=== PATIENT | female | born 1990 | race Caucasian/White ===

== ENCOUNTER 2019-06-11 10:15 | Emergency (ER) | payer SELFPAY ==
[~2019-06-11] VITALS: Ht 154.9 cm; Wt 61.4 kg
[~2019-06-11 10:15] MED LIST: CEFTIN250 M1 PO; FLEXERIL 1010 MG/TAB PO; NO HOME MEDICATIONS; NORCO 325 MG-51 TAB PO; PHENERGAN VC W120 ML PO; PRENATAL1 TA1 PO; ZANTAC PO
[2019-06-11 10:29] VITALS: BP 173/98; PULSE 95; TEMP 98.6
[2019-06-11] MEDS ORDERED: FLEXERIL 1010 MG/TAB PO (11:11)
== END 2019-06-11 11:16 | disposition home or self-care (01) ==
LOC: COL.ER 10:15
DX: M54.2 Cervicalgia (principal); F17.210 Nicotine dependence, cigarettes, uncomplicated; Z90.49 Acquired absence of other specified parts of digestive tract

== ENCOUNTER 2019-09-01 21:32 | Emergency (ER) | payer SELFPAY ==
[~2019-09-01] VITALS: Ht 152.4 cm; Wt 59.1 kg
[2019-09-01 22:34] LABS: BASO # 0.1 (0.0-0.2); BASO % 0.5 % (0.0-2.0); EOS # 0.1 (0.0-0.7); EOS % 0.5 % (0-4.0); GRAN # 9.9 (1.4-6.5); GRAN % 66.2 % (42.2-75.2); HEMATOCRIT 43.4 % (37.0-47.0); HEMOGLOBIN 14.6 g/dl (12.5-16.0); LYMPH # 3.7 (1.2-3.4); LYMPH % 24.7 % (20.0-51.0); MEAN CELL VOLUME 95 fl (80.0-100.0); MEAN CORPUSCULAR HEMOGLOBIN 32 pg (27.0-31.0); MEAN CORPUSCULAR HGB CONC 34 g/dl (33.0-37.0); MEAN PLATELET VOLUME 12.3 fl (7.4-10.4); MONO # 1.2 (0.1-0.6); MONO % 7.7 % (1.7-9.3); PLATELET COUNT 181 K/mm3 (130-400); RED BLOOD COUNT 4.57 M/mm3 (4.10-5.30)
[2019-09-01 22:46] LABS: ALANINE AMINOTRANSFERASE 24 U/L (4-34); ALBUMIN 4.7 gm/dL (3.5-5.0); ALCOHOL(ethanol),MEDICAL 118 mg/dL; ALKALINE PHOSPHATASE 59 U/L (50-136); ANION GAP 8 mmol/L (7-16); AST,SGOT 52 U/L (15-37); BILIRUBIN,TOTAL 0.5 mg/dL (0.0-1.0); BLOOD UREA NITROGEN 6 mg/dL (7-17); CALCIUM 9.1 mg/dL (8.4-10.2); CARBON DIOXIDE 23 mmol/L (22-30); CHLORIDE 109 mmol/L (98-107); CREATININE, serum 0.65 (0.52-1.25); GLUCOSE 104 mg/dL (74-106); POTASSIUM 4.1 mmol/L (3.4-5.0); SODIUM 140 mmol/L (137-145); TOTAL PROTEIN 7.8 gm/dL (6.4-8.2)
[2019-09-01 22:47] LABS: ACETAMINOPHEN < 10 ug/mL (10-30); SALICYLATE < 1.0 mg/dL
[2019-09-01 22:47] LABS: COLLECTION METHOD CLEAN CATCH
[2019-09-01 22:59] LABS: MUCOUS Present /lpf; PH 5 (5-8); SQUAMOUS EPITHELIAL 0-2 /hpf; URINE APPEARANCE Clear; URINE BACTERIA None Seen /hpf; URINE BILIRUBIN Negative (NEGATIVE); URINE BLOOD 1+ (NEGATIVE); URINE COLOR Yellow; URINE GLUCOSE Negative (NEGATIVE); URINE KETONE Negative (NEGATIVE); URINE LEUKOCYTE ESTERASE Trace (NEGATIVE); URINE NITRATE Negative (NEGATIVE); URINE PROTEIN(semi-quant) Negative (NEGATIVE); URINE UROBILINOGEN Negative (NEGATIVE)
[2019-09-01 23:00] LABS: TRICYCLIC ANTIDEPRESS URINE NEGATIVE
[2019-09-02 00:52] VITALS: PULSE 114; TEMP 98
[2019-09-02] MEDS ORDERED: CEFTIN 250250 MG/TAB PO (02:45)
[2019-09-02 04:35] VITALS: BP 140/92
== END 2019-09-02 05:13 | disposition home or self-care (01) ==
LOC: COL.ER 21:32
PROVIDERS: Nurse Practitioner
DX: F32.9 Major depressive disorder, single episode, unspecified (principal); S01.81XA Laceration without foreign body of other part of head, initial encounter; S80.211A Abrasion, right knee, initial encounter; S60.512A Abrasion of left hand, initial encounter; S60.511A Abrasion of right hand, initial encounter; F17.210 Nicotine dependence, cigarettes, uncomplicated; W17.89XA Other fall from one level to another, initial encounter; Y93.02 Activity, running; Y04.0XXA Assault by unarmed brawl or fight, initial encounter; Y92.008 Other place in unspecified non-institutional (private) residence as the place of occurrence of the external cause; Z32.02 Encounter for pregnancy test, result negative

== ENCOUNTER 2020-04-23 08:14 | Emergency (ER) | payer SELFPAY ==
[~2020-04-23] VITALS: Ht 152.4 cm; Wt 54.5 kg
[~2020-04-23 08:14] MED LIST changes: +CEFTIN 250250 MG/TAB PO
[2020-04-23 08:55] VITALS: TEMP 98.9
[2020-04-23] MEDS ORDERED: AKTOB 5 ML5 ML OS (09:29)
[2020-04-23 14:25] VITALS: BP 119/75; PULSE 72
== END 2020-04-23 09:45 | disposition home or self-care (01) ==
LOC: COL.ER 08:14
DX: S05.02XA Injury of conjunctiva and corneal abrasion without foreign body, left eye, initial encounter (principal); W55.03XA Scratched by cat, initial encounter